=== PATIENT | female | born 1980 | race Caucasian/White ===

== ENCOUNTER 2017-07-09 21:28 | Emergency (ER) | payer MEDICAID ==
[2017-07-09] MEDS ORDERED: Pregabalin CAP(*) 100 MG PO ONE (22:18)
[2017-07-09] MEDS ORDERED: Ketorolac INJ* 60 MG/2 ML VIAL IM ONE (22:19)
[2017-07-09] MEDS ORDERED: Pregabalin CAP(*) 50 MG PO ONE (23:00)
[2017-07-09 23:40] VITALS: BP 107/59
--- NOTE | 2017-07-10 07:51 | RAD ---
INDICATION: Bilateral lower extremity edema. COMPARISON: There are no prior studies available for comparison. TECHNIQUE: Multiple real-time, color flow and Doppler tracings of both lower extremities were obtained. FINDINGS: The common femoral, femoral, profunda femoral and popliteal veins all demonstrate normal compressibility, augmentation with compression and phasic response with respiration. The posterior tibial and peroneal veins demonstrate normal compressibility and augmentation with compression. IMPRESSION: NO EVIDENCE FOR DEEP VENOUS THROMBOSIS.
--- NOTE | 2017-07-26 01:36 | ED ---
Otoniel Joseph SooYoung, scribed for Rupali Pratt MD on 07/09/17 at 2204 . Complex/Multi-Sys Presentation - HPI Summary HPI Summary: A 36 y/o F MANI presents to ED with LLE tenderness ongoing one month. LLE pain is described as throbbing and ranges from her anterior patella to toes of LLE. Associated sx: tingling in LLE described as pins and needles, bilat pedal edema. Aggravating factors: standing. Pt is in-patient at [facility], she's been clean for 34 days. 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 PMHx: bilat carpal tunnel syndrome. Currently on 50mg TID Lyrica, which was recently reduced from her 600mg dose of Lyrica by her doctor at the rehab facility. She does not believe the lower dose is enough for her pain. She did take her Lyrica today. She states she's unable to sleep due to the LE pain. Pt is also requesting wrist splints for her carpal tunnel syndrome. - History Of Current Complaint Chief Complaint: EDGeneral Time Seen by Provider: 07/09/17 21:54 Hx Obtained From: Patient Onset/Duration: Gradual Onset, Lasting Weeks, Still Present Timing: Constant Severity Currently: Severe - 9 out of 10 Character: Throbbing Aggravating Factor(s): Standing Associated Signs And Symptoms: Positive: Edema - bilat pedal edema, Other - LLE pain and parasthesia - Allergies/Home Medications Allergies/Adverse Reactions: Allergies Allergy/AdvReac Type Severity Reaction Status Date / Time Metoclopramide [From Reglan] Allergy Unknown Verified 07/09/17 21:49 Reaction Details Venlafaxine [From Effexor] Allergy Unknown Verified 07/09/17 21:49 Reaction Details PMH/Surg Hx/FS Hx/Imm Hx Previously Healthy: No Respiratory History: Reports: Hx Asthma Musculoskeletal History: Reports: Hx Arthritis, Other Musculoskeletal History - carpal tunnel Infectious Disease History: Yes Infectious Disease History: Denies: Traveled Outside the [place] in Last 30 Days - Social History Occupation: Unemployed Lives: Long-Term - [facility] facility Alcohol Use: None Substance Use Type: Reports: None Substance Use Comment - Amount & Last Used: In [facility] Hx Tobacco Use: No Smoking Status (MU): Never Smoked Tobacco Review of Systems Negative: Fever Positive: Edema - bilat pedal edema Positive: Paresthesia - LLE All Other Systems Reviewed And Are Negative: Yes Physical Exam - Summary Physical Exam Summary: VITAL SIGNS: Reviewed. GENERAL: Patient is a well-developed and nourished FEMALE who is lying comfortable in the stretcher. Patient is not in any acute respiratory distress. HEAD AND FACE: No signs of trauma. No ecchymosis, hematomas or skull depressions. No sinus tenderness. EYES: PERRLA, EOMI x 2, no injected conjunctiva, no nystagmus. EARS: Hearing grossly intact. Ear canals and tympanic membranes are within normal limits. MOUTH: Oropharynx is within normal limits. NECK: Supple, trachea is midline, no adenopathy, no JVD, no carotid bruit, no c- spine tenderness, neck with full ROM. CHEST: Symmetric, no tenderness at palpation LUNGS: Clear to auscultation bilaterally. No wheezing or crackles. CVS: Regular rate and rhythm, S1 and S2 present, no murmurs or gallops appreciated. ABDOMEN: Soft, non-tender. No signs of distention. No rebound, no guarding, and no masses palpated. Bowel sounds are normal. EXTREMITIES: FROM in all major joints, no edema, no cyanosis, no clubbing. Paresthesia and hypoesthesia of bilat LE. NEURO: Alert and oriented x 3. No acute neurological deficits. Speech is normal and follows commands. Paresthesia and hypoesthesia of bilat LE. SKIN: Dry and warm Triage Information Reviewed: Yes Vital Signs On Initial Exam: Initial Vitals Temp Pulse Resp BP Pulse Ox 98.0 F 60 16 107/64 96 07/09/17 21:30 07/09/17 21:30 07/09/17 21:30 07/09/17 21:30 07/09/17 21:30 Vital Signs Reviewed: Yes Diagnostics - Vital Signs Vital Signs Temp Pulse Resp BP Pulse Ox 07/09/17 21:30 98.0 F 60 16 107/64 96 - Laboratory Lab Statement: Any lab studies that have been ordered have been reviewed, and results considered in the medical decision making process. - Ultrasound No standard instances Ultrasound Interpretation: No Acute Changes - LE U/S IMPRESSION: No DVT. ED provider has reviewed this radiology report and agrees. Ultrasound Interpretation Completed By: Radiologist Re-Evaluation - Re-Evaluation 1 Re-Evaluation Time: 23:04 Change: Improved Comment: Pt has wrist splints, she states feeling much better. Recommended 300mg (100 TID) Lyrica and Motrin needed as pain. 2 Re-Evaluation Time: 23:33 Change: Unchanged Comment: Prior to D/C discussed with pt the need for bilat extremity U/S. 3 Re-Evaluation Time: 00:46 Change: Unchanged Comment: Discussing U/S results with pt. Will dispo home, pt is agreeable. Complex Multi-Symp Course/Dx Course Of Treatment: A 36 y/o F MANI presents to ED with LLE tenderness ongoing one month. LLE pain is described as throbbing and ranges from her anterior patella to toes of LLE. Associated sx: tingling in LLE described as pins and needles, bilat pedal edema. Aggravating factors: standing. Pt is in-patient at [facility] rehab, she's been clean for 34 days. 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 PMHx: bilat carpal tunnel syndrome. Currently on 50mg TID Lyrica, which was recently reduced from her 600mg dose of Lyrica by her doctor at the rehab facility. She does not believe the lower dose is enough for her pain. She did take her Lyrica today. She states she's unable to sleep due to the LE pain. Pt is also requesting wrist splints for her carpal tunnel syndrome. Pt given Lyrica and Toradol in ED. Recommended Motrin for pain, discussed increasing her Lyrica to 100mg TID, and to discuss this with her primary care provider. Pt voiced understanding. - Diagnoses Provider Diagnoses: Neuropathy Discharge - Discharge Plan Condition: Stable Disposition: HOME Patient Education Materials: Splint Care (ED), Peripheral Neuropathy (ED), Paresthesia (ED) Additional Instructions: Use Motrin as needed. As we discussed, recommend increasing to 300mg of Lyrica per day -- 100mg 3x a day. Follow up with your provider. Please return to the ED if you experience new or worsening symptoms. The documentation as recorded by the Otoniel childress SooYoung accurately reflects the service I personally performed and the decisions made by me, Rupali Pratt MD.
== END 2017-07-10 01:30 | disposition home or self-care (01) ==
LOC: ED 21:28
DX: G62.9 Polyneuropathy, unspecified (principal); R60.9 Edema, unspecified
CPT/HCPCS: 93970; 96372; 99282; A9270-GY; J1885

== ENCOUNTER 2017-07-22 18:47 | Emergency (ER) | payer MEDICAID ==
[2017-07-22 19:09] VITALS: BP 102/61
[2017-07-22] MEDS ORDERED: Ibuprofen TAB* 400 MG PO ONE (19:34)
[2017-07-22] MEDS ORDERED: Fluconazole 150 MG (NF) 150 MG TAB PO ONE (19:49)
[2017-07-22] MEDS ORDERED: Sulfamethox/Trimethoprim DS 800/160* TAB PO ONE (19:50)
[2017-07-22] MEDS ORDERED: Fluconazole 100 MG TAB* TAB PO ONE (19:59)
--- NOTE | 2017-07-22 19:59 | UC ---
General HPI - HPI Summary HPI Summary: 1. 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 2. ONE WEEK OF YEAST INFECTION, FINISHED FLAGYL FOR A BACTERIAL VAGINOSIS INFECTION ONE WEEK AGO. 3. IS CURRENTLY IN [employer] AND IS HAVING A CHALLENGING TIME EMOTIONALLY. 4. HAVING CHRONIC LEG PAIN AND WOULD LIKE TO HAVE AN IBUPROFEN HERE, NOW FOR THE DISCOMFORT - History of Current Complaint Chief Complaint: UCSkin Stated Complaint: SOFT TISSUE Time Seen by Provider: 07/22/17 19:24 Hx Obtained From: Patient Hx Last Menstrual Period: 07/05/17 Onset/Duration: Gradual Onset, Lasting Weeks, Worse Since - THREE DAYS Onset Severity: Mild Current Severity: Mild Associated Signs & Symptoms: Negative: Fever, Trauma - Allergy/Home Medications Allergies/Adverse Reactions: Allergies Allergy/AdvReac Type Severity Reaction Status Date / Time Metoclopramide [From Reglan] Allergy Unknown Verified 07/22/17 19:09 Reaction Details Venlafaxine [From Effexor] Allergy Unknown Verified 07/22/17 19:09 Reaction Details Home Medications: Home Medications ARIPiprazole TAB* [Abilify TAB*] 10 mg PO BID 07/22/17 [History Confirmed 07/22] Acamprosate (NF) [Campral (NF)] 2 tab PO TID 07/22/17 [History Confirmed ] Acamprosate Calcium [Acamprosate Calcium Dr] 2 tab PO TID 07/22/17 [History Confirmed 07/22/17] Acetaminophen [Mapap] 1 - 2 mg PO Q6H PRN 07/22/17 [History Confirmed 07/22/17] Albuterol HFA INHALER* [Ventolin HFA Inhaler*] PRN 07/22/17 [History] Buprenorphine/Naloxone SL TAB* [Suboxone 8-2 mg SL TAB*] 1 tab.sl SL BID [History Confirmed 07/22/17] Cyanocobalamin TAB* [Vitamin B12 TAB*] 1,000 mcg PO DAILY 07/22/17 [History Confirmed 07/22/17] DULoxetine DR CAP* [Cymbalta CAP*] 60 mg PO DAILY 07/22/17 [History Confirmed ] Doxepin (NF) [Silenor (NF)] 10 mg PO BEDTIME 07/22/17 [History Confirmed ] Ferrous Sulfate [Iron] 325 mg PO DAILY 07/22/17 [History Confirmed 07/22/17] Multiple Vitamins W/ Minerals [Multivitamin Adults] 1 tab PO DAILY 07/22/17 [ History Confirmed 07/22/17] Nicotine GUM* 2 mg PO Q2H 07/22/17 [History Confirmed 07/22/17] Nicotine PATCH 14 MG/24 HR* 14 mg TRANSDERM DAILY 07/22/17 [History Confirmed ] Omeprazole CAP* [Prilosec CAP* 20 MG] 20 mg PO DAILY 07/22/17 [History Confirmed 07/22/17] Pregabalin CAP(*) [Lyrica CAP(*)] 100 mg PO TID 07/22/17 [History Confirmed 03/01] Promethazine TAB* [Phenergan TAB*] 12.5 mg PO Q8H PRN 07/22/17 [History Confirmed 07/22/17] cloNIDine TAB* [Catapres 0.1 MG TAB*] 0.2 mg PO QID 07/22/17 [History Confirmed 07/22/17] lamoTRIgine TAB(*) [LaMICtal TAB(*)] 200 mg PO DAILY 07/22/17 [History Confirmed 07/22/17] PMH/Surg Hx/FS Hx/Imm Hx Previously Healthy: Yes - Surgical History Surgical History: Yes Surgery Procedure, Year, and Place: X2, APPENDECTOMY, GASTRIC BYPASS - Family History Known Family History: Positive: Other - MRSA - Social History Occupation: Unemployed - CURRENTLY IN [employer] Alcohol Use: None Alcohol Amount: SOBER SINCE 06/04/17 Substance Use Type: None Substance Use Comment - Amount & Last Used: In [facility] Smoking Status (MU): Current Every Day Smoker Type: Cigarettes Amount Used/How Often: 1/2 PPD Household Exposure Type: Cigars Review of Systems Constitutional: Negative Skin: Rash - ERYTHEMA GLUTEAL CLEFT Eyes: Negative ENT: Negative Respiratory: Negative Cardiovascular: Negative Gastrointestinal: Negative Genitourinary: Negative Motor: Negative Neurovascular: Negative Musculoskeletal: Negative Neurological: Negative Psychological: Negative Is Patient Immunocompromised?: No All Other Systems Reviewed And Are Negative: Yes Physical Exam Triage Information Reviewed: Yes Appearance: Well-Appearing, No Pain Distress, Well-Nourished, Obese Vital Signs: Initial Vital Signs Temp 97.6 F 07/22/17 19:03 Pulse 84 07/22/17 19:03 Resp 16 07/22/17 19:03 BP 102/61 07/22/17 19:03 Pulse Ox 100 07/22/17 19:03 Vital Signs Reviewed: Yes Eye Exam: Normal ENT Exam: Normal ENT: Positive: Normal ENT inspection Dental Exam: Normal Neck exam: Normal Respiratory Exam: Normal Respiratory: Positive: Chest non-tender, Lungs clear, Normal breath sounds Cardiovascular Exam: Normal Cardiovascular: Positive: RRR, No Murmur, Pulses Normal, Brisk Capillary Refill Abdominal Exam: Normal Abdomen Description: Positive: Nontender, No Organomegaly Musculoskeletal Exam: Normal Musculoskeletal: Positive: Strength Intact, ROM Intact Neurological Exam: Normal Psychological Exam: Normal Skin: Positive: rashes - ERYTHEMA TENDERNESS TO GLUTEAL CLEFT Course/Dx - Differential Dx - Multi-Symptom Differential Diagnoses: Other Provider Diagnoses: CELLULITIS, GLUTEAL CLEFT; MRSA HISTORY; VULVOVAGINAL CANDIDIASIS; CHRONIC LEG PAIN Discharge - Discharge Plan Condition: Stable Disposition: HOME Prescriptions: Sulfamethox/Trimethoprim DS* [Bactrim DS 800/160 TAB*] 1 tab PO BID #14 tab Patient Education Materials: Cellulitis (ED), Vulvovaginal Candidiasis (ED) Referrals: [facility] [Outside] No Primary Care Phys,NOPCP [Primary Care Provider] -
== END 2017-07-22 20:17 | disposition home or self-care (01) ==
LOC: UCEAST 18:47
DX: L03.317 Cellulitis of buttock (principal); Z86.14 Personal history of Methicillin resistant Staphylococcus aureus infection; B37.3 Candidiasis of vulva and vagina; M79.606 Pain in leg, unspecified; E66.9 Obesity, unspecified; Z98.84 Bariatric surgery status; Z88.8 Allergy status to other drugs, medicaments and biological substances; F17.210 Nicotine dependence, cigarettes, uncomplicated
CPT/HCPCS: 99213; A9270-GY; G0463